=== PATIENT | male | born 1960 | race Caucasian/White ===

== ENCOUNTER → 2017-07-15 | Outpatient (CLI) | payer OTHER ==
[~2017-07-15] MED LIST: ALPR0.25 PO; ATOR80TA PO; CITA40TA12 PO; LEFL20TA16 PO
== END | disposition home or self-care (01) ==
LOC: CFH 08:20
PROVIDERS: ATTEND Internal Medicine Cardiovascular Disease
DX: I25.10 Atherosclerotic heart disease of native coronary artery without angina pectoris (principal)
CPT/HCPCS: 78452; 93017; A9502

== ENCOUNTER 2018-07-07 11:59 | Emergency (ER) | payer OTHER ==
[~2018-07-07] VITALS: Ht 175.3 cm; Wt 87.2 kg
[2018-07-07 12:14] VITALS: BP 123/49
[2018-07-07] MEDS ORDERED: METF500T9 PO (12:29)
[2018-07-07] MEDS ORDERED: ADAL40PE5 SQ (12:29)
[2018-07-07] MEDS ORDERED: LISI-170 PO (12:29)
== END 2018-07-07 12:37 | disposition home or self-care (01) ==
LOC: ED 12:30
DX: J01.00 Acute maxillary sinusitis, unspecified (principal); I10 Essential (primary) hypertension; E11.9 Type 2 diabetes mellitus without complications; E78.5 Hyperlipidemia, unspecified; M19.90 Unspecified osteoarthritis, unspecified site; Z88.0 Allergy status to penicillin
CPT/HCPCS: 99283